=== PATIENT | female | born 1975 | race Caucasian/White ===

== ENCOUNTER → 2018-09-27 | Outpatient (CLI) | payer OTHER ==
--- NOTE | 2018-09-27 10:23 | MM ---
Reason for exam: clinical finding. History: Family history of breast cancer in maternal grandmother. Physical Findings: Nurse Summary: 0.5cm nodule in the right breast at 11 o'clock (nurse sourav). MG 3D Diag Mammo W/Cad NITZA Bilateral CC and MLO view(s) were taken. The breast tissue is heterogeneously dense. This may lower the sensitivity of mammography. No suspicious abnormality. These results were verbally communicated with the patient and result sheet given to the patient on 09/27/18. ASSESSMENT: Incomplete: need additional imaging evaluation, BI-RAD 0 RECOMMENDATION: Ultrasound of the right breast. (palpable)
--- NOTE | 2018-09-27 10:24 | USB ---
Reason for exam: additional evaluation requested from abnormal screening. History: Family history of breast cancer in maternal grandmother. US Breast Limited RT Right limited breast ultrasound including focal area of concern, retroareolar and axilla demonstrates no cystic or solid lesion seen. No suspicious finding at palpable. These results were verbally communicated with the patient and result sheet given to the patient on 09/27/18. ASSESSMENT: Negative, BI-RAD 1 RECOMMENDATION: Routine screening mammogram of both breasts in 1 year. Manage patient on a clinical basis.
== END | disposition home or self-care (01) ==
LOC: RADMAMWWP 07:55
PROVIDERS: ATTEND Family Medicine
DX: R92.8 Other abnormal and inconclusive findings on diagnostic imaging of breast (principal)
CPT/HCPCS: 77062; 77066

== ENCOUNTER → 2019-11-24 | Outpatient (CLI) | payer OTHER ==
--- NOTE | 2019-11-28 08:01 | MM ---
Reason for exam: screening (asymptomatic). Last mammogram was performed 1 year and 2 months ago. History: Family history of breast cancer in maternal grandmother. Physical Findings: A clinical breast exam by your physician is recommended on an annual basis and results should be correlated with mammographic findings. MG Screening Mammo w CAD Bilateral CC and MLO view(s) were taken. Prior study comparison: September 27, 2018, bilateral MG 3d diag mammo w/cad NITZA. There are scattered fibroglandular densities. Focal asymmetry No significant changes when compared with prior studies. ASSESSMENT: Benign, BI-RAD 2 RECOMMENDATION: Routine screening mammogram of both breasts in 1 year.
== END | disposition home or self-care (01) ==
LOC: RADMAMWWP 08:09
PROVIDERS: ATTEND Family Medicine
DX: Z12.31 Encounter for screening mammogram for malignant neoplasm of breast (principal)
CPT/HCPCS: 77067

== ENCOUNTER → 2020-04-30 | Outpatient (CLI) | payer OTHER ==
[2020-04-30 16:01] LABS: Thyroid Peroxidase Antibodies 41.1 U/mL (0.0-60.0)
[2020-04-30 16:10] LABS: Chol/HDL Ratio 3.37; LDL Cholesterol,Calculated 99.4 mg/dL (0.0-131.0); VLDL Calculation 21.6 mg/dL (5.00-40.00)
== END | disposition home or self-care (01) ==
LOC: LABWHC1 09:32
PROVIDERS: ATTEND Nurse Practitioner Psychiatric/Mental Health
DX: F41.1 Generalized anxiety disorder (principal)
CPT/HCPCS: 36415; 80061; 82947; 84439; 84443; 84481; 86376; 86800

== ENCOUNTER 2020-06-15 09:20 | Inpatient (IN) | payer OTHER ==
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
[2020-06-15 10:36] LABS: Amphetamine Screen,Urine Not Detected (NotDetected); Barbiturate Screen,Urine Not Detected (NotDetected); Benzodiazepines Screen,Urine Not Detected (NotDetected); Cocaine Screen,Urine Not Detected (NotDetected); Methadone Screen, Urine Not Detected (NotDetected); Opiate Screen,Urine Not Detected (NotDetected); Oxycodone Screen, Urine Not Detected (NotDetected); Phencyclidine Screen,Urine Not Detected (NotDetected); Tricyclic Antidepressant,Urine Detected (NotDetected); Urn Cannabinoid Scrn Detected (NotDetected)
[2020-06-15] MEDS ORDERED: LORazepam 1 MG TAB PO STA (12:19)
[2020-06-15] MEDS ORDERED: MAGNESIUM HYDROXIDE 2,400 MG/10 ML CUP PO PRN (15:35)
[2020-06-15] MEDS ORDERED: ACETAMINOPHEN TAB 325 MG TAB PO PRN (15:35)
[2020-06-15] MEDS ORDERED: MAG HYDROX/AL HYDROX/SIMETH 30 ML CUP PO PRN (15:35)
[2020-06-15] MEDS ORDERED: PROPRANOLOL 10 MG TAB PO PRN (15:39)
[2020-06-15] MEDS ORDERED: LORazepam 2 MG/ML INJ IM PRN (15:40)
[2020-06-15] MEDS ORDERED: HALOPERIDOL LACTATE 5 MG/ML 1 ML VIAL IM PRN (15:40)
[2020-06-15] MEDS ORDERED: haloperidoL 5 MG TAB PO PRN (15:41)
[2020-06-15] MEDS: GABAPENTIN 400 MG CAP PO SCH ×2 (17:03→20:26)
[2020-06-15] MEDS: QUEtiapine 200 MG TAB PO SCH (20:26)
[2020-06-15] MEDS ORDERED: NICOTINE 21MG/24HR PATCH TRANSDERM ONE (20:30)
--- NOTE | 2020-06-16 06:23 | P.MDCNMH ---
History of Present Illness H&P Date: 06/15/20 Chief Complaint: medical evaluation 44 year old female with hypertension , depression patient comes in for evaluation of depression and suicidal ideation patient reports no physical complaints, denies any fever, chills, SOB, chest pain , abd pain , nausea or vomiting patient has hypertension , and takes propranolol. she reported that she takes 4 pills , 3 times aday . and that has helped control her blood pressure , denies any headache, chest pain , SOB. or any focal neuro deficits Review of Systems Pertinent positives as noted in HPI. All other systems were reviewed and are negative Past Medical History Past Medical History: Hypertension History of Any Multi-Drug Resistant Organisms: None Reported Past Surgical History: Cholecystectomy, Tonsillectomy Past Anesthesia/Blood Transfusion Reactions: No Reported Reaction Past Psychological History: Anxiety, Bipolar, Depression Smoking Status: Current every day smoker, Current some day smoker Past Alcohol Use History: None Reported Past Drug Use History: Marijuana Medications and Allergies Home Medications Medication Instructions Recorded Confirmed Type Gabapentin [Neurontin] 400 mg PO TID 06/15/20 06/15/20 History Propranolol [Inderal] 20 mg PO TID PRN 06/15/20 06/15/20 History QUEtiapine [SEROquel] 200 mg PO BID 06/15/20 06/15/20 History amLODIPine [Norvasc] 5 mg PO DAILY 06/15/20 06/15/20 History lisinopriL 40 mg PO DAILY 06/15/20 06/15/20 History Allergies Allergy/AdvReac Type Severity Reaction Status Date / Time No Known Allergies Allergy Verified 06/15/20 16:58 Physical Exam Vitals: Vital Signs Temp Pulse Pulse Resp BP BP Pulse Ox 06/15/20 17:29 98.7 F 06/15/20 16:38 97.5 F L 89 20 140/95 06/15/20 13:00 18 06/15/20 09:34 98 F 120 H 18 146/70 96 Intake and Output 06/15/20 06/15/20 06/16/20 14:59 22:59 06:59 Other: Weight 108.862 kg 114.475 kg Constitutional: No acute distress, conversant, pleasant Eyes: Anicteric sclerae, moist conjunctiva, Pupils equal round reactive to light ENMT: NC/AT Oropharynx clear, no erythema, or exudates Neck: Supple, FROM, no masses, or JVD No carotid bruits No thyromegaly Lungs: Clear to auscultation Clear to percussion Normal respiratory effort, no accessory muscle use Cardiovascular: Heart regular in rate and rhythm, No murmurs, gallops, or rubs No peripheral edema Abdominal: Soft Nontender, no guarding, rebound or rigidity Abdomen moving with respiration Normoactive bowel sounds No hepatomegaly, No splenomegaly No palpable mass No abdominal wall hernia noted Skin: Normal temperature, tone, texture, turgor No induration No subcutaneous nodules No rash, lesions No ulcers Extremities: No digital cyanosis No clubbing Pedal pulses intact and symmetrical Radial pulses intact and symmetrical No calf tenderness Psychiatric: Alert and oriented to person, place and time Appropriate affect fair judgement Neuro Muscles Strength 5/5 in all 4 extremities Sensation to light touch grossly present throughout Cranial nerves II-XII grossly intact No focal sensory deficits Lymphatics: no palpable cervical or supraclavicular , or inguinal lymph nodes Cranial Nerve Examination - Cranial Nerves Cranial Nerve II- Optic: Intact Cranial Nerve III- Oculomotor: Intact Cranial Nerve IV- Trochlear: Intact Cranial Nerve V- Trigeminal: Intact Cranial Nerve - Abducens: Intact Cranial Nerve VII- Facial: Intact Cranial Nerve VIII- Auditory: Intact Cranial Nerve IX- Glossopharyngeal: Intact Cranial Nerve X- Vagus: Intact Cranial Nerve XI- Accessory: Intact Cranial Nerve XII- Hypoglossal: Intact Results Labs: Abnormal Lab Results - Last 24 Hours (Table) 06/15/20 Range/Units 10:00 U Tricyclic Antidepress Detected H (NotDetected) U Marijuana (THC) Screen Detected H (NotDetected) Assessment and Plan Assessment: depression and suicidal ideation , management per psych hypertension , controlled resume home meds patient claimed that she takes 4 pill s of her propranolol , 3 times a day Follow-up labs Thank you for allowing us to participate in the care of this patient. We will follow peripherally. Do not hesitate to contact us with questions. Someone can be reached from the [facility] hospitalist group at all hours of the day at [phone].
[2020-06-16 07:13] LABS: Basophils % (A) 0 %; Eosinophils # (A) 0.1 k/uL (0-0.7); Eosinophils % (A) 1 %; HCT 44.7 % (34.0-46.0); HGB 14.9 gm/dL (11.4-16.0); Lymphocytes # (A) 2.3 k/uL (1.0-4.8); Lymphocytes % (A) 26 %; MCH 31.9 pg (25.0-35.0); MCHC 33.3 g/dL (31.0-37.0); MCV 95.7 fL (80.0-100.0); Monocytes # (A) 0.7 k/uL (0-1.0); Monocytes % (A) 8 %; Neutrophils # (A) 5.5 k/uL (1.3-7.7); Neutrophils % (A) 63 %; Platelet Count 234 k/uL (150-450); RBC 4.67 m/uL (3.80-5.40); RDW 12.1 % (11.5-15.5); WBC 8.7 k/uL (3.8-10.6)
[2020-06-16 07:29] LABS: ALT 12 U/L (4-34); AST 21 U/L (14-36); African American GFR (CKD) >90 (>60 ml/min/1.73 sqM); Albumin 3.9 g/dL (3.5-5.0); Alkaline Phosphatase 66 U/L (38-126); Anion Gap 6 mmol/L; Blood Urea Nitrogen 12 mg/dL (7-17); Calcium 9.2 mg/dL (8.4-10.2); Carbon Dioxide 28 mmol/L (22-30); Chloride 104 mmol/L (98-107); Cholesterol 177 mg/dL (<200); Glucose 106 mg/dL (74-99); HDL Cholesterol 44 mg/dL (40-60); LDL Cholesterol,Calculated 117 mg/dL (0-99); Non-African American GFR(CKD) >90 (>60 ml/min/1.73 sqM); Potassium 4.2 mmol/L (3.5-5.1); Sodium 138 mmol/L (137-145); Total Bilirubin 0.6 mg/dL (0.2-1.3); Total Protein 6.7 g/dL (6.3-8.2); Triglycerides 81 mg/dL (<150)
[2020-06-16] MEDS: lisinopriL 20 MG TAB PO SCH (08:44)
[2020-06-16] MEDS: NICOTINE 21MG/24HR PATCH TRANSDERM SCH (08:44)
[2020-06-16] MEDS: amLODIPine 5 MG TAB PO SCH (08:45)
[2020-06-16] MEDS: GABAPENTIN 400 MG CAP PO SCH ×3 (08:45→21:17)
[2020-06-16] MEDS ORDERED: PROPRANOLOL 40 MG TAB PO SCH (09:00)
[2020-06-16] MEDS ORDERED: FLUoxetine HCL 20 MG CAP PO STA (10:22)
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
[2020-06-16] MEDS ORDERED: ASPIRIN 325 MG TAB PO PRN (12:46)
[2020-06-16 14:07] LABS: Hemoglobin A1C 5.3 % (4.0-6.0)
[2020-06-16] MEDS: QUEtiapine 200 MG TAB PO SCH (21:17)
[2020-06-16] MEDS: PROPRANOLOL 40 MG TAB PO SCH (21:29)
[2020-06-17 06:45] VITALS: TEMP 97.8
[2020-06-17] MEDS: NICOTINE 21MG/24HR PATCH TRANSDERM SCH (07:58)
[2020-06-17] MEDS: amLODIPine 5 MG TAB PO SCH (08:00)
[2020-06-17] MEDS: lisinopriL 20 MG TAB PO SCH (08:00)
[2020-06-17] MEDS: PROPRANOLOL 40 MG TAB PO SCH ×2 (08:00→21:11)
[2020-06-17] MEDS: GABAPENTIN 400 MG CAP PO SCH ×3 (08:00→21:11)
--- NOTE | 2020-06-17 14:26 | P.PN ---
Progress Note - Text Progress Note Date: 06/17/20 Clinical Problems: Major depressive disorder severe with anxious distress, rule out bipolar illness current episode depressed with anxious distress, alcohol use disorder severe in sustained remission Interim history: I reviewed the medical record and interviewed the patient. She reported a slight improvement in her mood and decreasing anxiety. She had no adverse reactions to the initial dose of Prozac. She attributes the improvement of remote to the supportive milieu but is hopeful for further improvements with the Prozac as she is experiencing the past. She talked about speaking with her frequently and they are addressing issues in her marriage. She was to be referred to another psychiatrist after discharge. She slept 7 hours last night. She is attending therapeutic groups and activities. Medical consult appreciated. Mental status exam: She presented as a fatigued-appearing 44-year-old female who was pleasant on approach. She appeared less distraught than on admission and did not cry during interview. She made eye contact and attended to interview. She had a sad facial expression. She had psychomotor retardation but no abnormal involuntary movements. Her speech was spontaneous with normal rate, rhythm and volume. Affect was depressed and minimally reactive. She denied suicidal ideation, wishes or homicidal ideation. She feels less hopeless and helpless to admission. She denied feeling worthless. She ruminated about her depression, anxiety and the effect of her mental illness in her family. She did not express ideas reference, paranoid ideation or delusions. Her thinking was abstract and her associations were coherent, log ical and goal directed. She denied hallucinations did not appear to be responding to internal stimuli. Assessment: She is moderately to severely mentally ill and minimally improve from admission. She is having no adverse effects to the initial dose of the antidepressant. Plan: Continue inpatient treatment. Safety precautions. Continue Prozac 20 mg daily and titrated clinical response and tolerance. Continue Seroquel 200 mg at bedtime. Taper then discontinue Inderal. Ativan 1 mg by mouth when necessary for anxiety. Encourage continued participation in therapeutic groups and activities. Evaluate clinical status response to treatment daily basis.
[2020-06-17] MEDS: QUEtiapine 200 MG TAB PO SCH (21:11)
[2020-06-18] MEDS: NICOTINE 21MG/24HR PATCH TRANSDERM SCH (08:49)
[2020-06-18] MEDS: PROPRANOLOL 10 MG TAB PO SCH ×2 (08:49→21:21)
[2020-06-18] MEDS: GABAPENTIN 400 MG CAP PO SCH ×3 (08:49→21:21)
[2020-06-18] MEDS: lisinopriL 20 MG TAB PO SCH (08:49)
[2020-06-18] MEDS: amLODIPine 5 MG TAB PO SCH (08:49)
[2020-06-18 08:58] VITALS: RESP 16
[2020-06-18] MEDS ORDERED: FLUoxetine HCL 20 MG CAP PO STA (09:33)
--- NOTE | 2020-06-18 09:54 | P.PN ---
Progress Note - Text Progress Note Date: 06/18/20 Interval History: Patient was seen wandering the hallways and was directable and agreeable to speak with commercial real estate underwriter in the office. The patient reports that overall she is feeling better. She states that the events leading to this hospitalization was nicotine elation of worsening depression ever since the holidays. She reports that with covid and other stressors she has been increasingly depressed. She states that she has been trying to receive antidepressant medication through her outpatient psychiatrist, which has been refused due to the diagnosis of bipolar disorder. Currently, the patient is not reporting any suicidal or homicidal ideation, intention, and/or plan. She is not reporting any auditory or visual hallucinations. She denies any paranoia or other delusions. She reports no racing thoughts, mood swings, irritability, or periods of excessive energy. She denies any increased goal-directed activity. She's been to drink the medications and not reporting any significant side effects at this time. Mental Status Exam: General Appearance: Patient appears to be stated age is alert, directable, and cooperative. Obese body habitus. Wearing glasses and has multiple tattoos. Behavior: Patient is calmly seated without any agitated behavior. Normal ps ychomotor activity. Speech: Patient's speech is fluent and nonpressured. Spontaneous, with normal rate, tone, volume. Mood/Affect: Mood is improving mildly, affect is congruent and euthymic. Suicidality/Homicidality: Patient denies having any suicidal or homicidal ideation intent or plan. Perceptions: Patient denies any visual hallucinations and denies any auditory hallucinations Though content/process: There is no evidence of any delusional thought content and thought process is linear and goal-directed. Future oriented. Memory and concentration: AOX3, grossly intact for the purposes of this session Judgment and insight: Improving mildly Assessment Major depressive disorder, with anxious distress Rule out bipolar disorder, depressed episode Alcohol use disorder, in sustained remission Plan: -Patient continues to meet criteria for inpatient psychiatric admission for symptom stabilization and safety. Patient has signed adult voluntary form and medication consent and was placed in patient's chart. -Medications: We will increase Prozac to 30 mg by mouth daily for management of depression/anxiety Continue Seroquel 20 mg at bedtime for mood stabilization/augmentation Continue taper of Inderal. -When necessary Ativan and Geodon for agitation/aggression. -NRT - nicotine patch -SW on board for discharge planning. Encouraged the patient to participate in milieu.
[2020-06-18] MEDS: QUEtiapine 200 MG TAB PO SCH (21:21)
[2020-06-19] MEDS: NICOTINE 21MG/24HR PATCH TRANSDERM SCH (07:54)
[2020-06-19] MEDS: lisinopriL 20 MG TAB PO SCH (07:55)
[2020-06-19] MEDS: GABAPENTIN 400 MG CAP PO SCH (07:55)
[2020-06-19] MEDS: amLODIPine 5 MG TAB PO SCH (07:55)
[2020-06-19 08:05] VITALS: BP 128/82; PULSE 82
[2020-06-19] MEDS ORDERED: FLUoxetine HCL 10 MG CAP PO SCH (09:00)
[2020-06-19] MEDS ORDERED: PROPRANOLOL 20 MG TAB PO SCH (09:00)
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
[2020-06-20] MEDS ORDERED: PROPRANOLOL 10 MG TAB PO SCH (09:00)
== END 2020-06-19 14:17 | disposition home or self-care (01) | DRG 885 ==
LOC: EC 09:20 → 3MHU 15:32
PROVIDERS: ADMIT Psychiatry & Neurology Psychiatry; ATTEND Psychiatry & Neurology Psychiatry
DX: F32.2 Major depressive disorder, single episode, severe without psychotic features (principal); R45.851 Suicidal ideations; F41.9 Anxiety disorder, unspecified; G47.00 Insomnia, unspecified; G89.29 Other chronic pain; Z20.822 Contact with and (suspected) exposure to COVID-19; I10 Essential (primary) hypertension; Z79.899 Other long term (current) drug therapy; Z91.410 Personal history of adult physical and sexual abuse; Z91.5 Personal history of self-harm; Z81.1 Family history of alcohol abuse and dependence; Z90.89 Acquired absence of other organs; Z90.49 Acquired absence of other specified parts of digestive tract
CPT/HCPCS: 80053; 80061; 80306; 82075; 83036; 84443; 85025; 87635; 99285

== ENCOUNTER → 2021-02-22 | Outpatient (CLI) | payer OTHER ==
--- NOTE | 2021-02-26 09:47 | MM ---
Reason for exam: screening (asymptomatic). Last mammogram was performed 1 year and 3 months ago. History: Family history of breast cancer in maternal grandmother. Physical Findings: A clinical breast exam by your physician is recommended on an annual basis and results should be correlated with mammographic findings. MG Screening Mammo w CAD Bilateral CC and MLO view(s) were taken. Prior study comparison: November 24, 2019, bilateral MG screening mammo w CAD. September 27, 2018, bilateral MG 3d diag mammo w/cad [facility]. Finding: There is an enlarging 7 x 14 mm equal density (isodense), indistinct oval mass in the upper outer quadrant, middle position of the right breast, previously measured 6 x 11mm. New finding since November 24, 2019 and September 27, 2018. ASSESSMENT: Incomplete: need additional imaging evaluation, BI-RAD 0 RECOMMENDATION: Special view mammogram of the right breast. If lesion persists on supplemental views, image directed ultrasound is recommended. [facility] will attempt to contact patient to return for supplemental views and ultrasound if indicated.
== END | disposition home or self-care (01) ==
LOC: RADMAMWWP 08:08
PROVIDERS: ATTEND Family Medicine
DX: Z12.31 Encounter for screening mammogram for malignant neoplasm of breast (principal)
CPT/HCPCS: 77067

== ENCOUNTER → 2021-03-07 | Outpatient (CLI) | payer OTHER ==
--- NOTE | 2021-03-07 12:23 | MM ---
Reason for exam: additional evaluation requested from abnormal screening. Last mammogram was performed less than 1 month ago. History: Family history of breast cancer in maternal grandmother. Physical Findings: Nurse did not find any significant physical abnormalities on exam. MG Work Up Mamm w CAD RT LM and spot compression MLO view(s) were taken of the right breast. Prior study comparison: February 22, 2021, bilateral MG screening mammo w CAD. November 24, 2019, bilateral MG screening mammo w CAD. The breast tissue is heterogeneously dense. This may lower the sensitivity of mammography. Nodule upper outer quadrant persists 7cm from nipple and measures 9mm. These results were verbally communicated with the patient and result sheet given to the patient on 03/07/21. ASSESSMENT: Incomplete: need additional imaging evaluation, BI-RAD 0 RECOMMENDATION: Ultrasound of the right breast.
--- NOTE | 2021-03-07 12:25 | USB ---
Reason for exam: additional evaluation requested from abnormal screening. History: Family history of breast cancer in maternal grandmother. US Breast Workup Limited RT Right limited breast ultrasound including focal area of concern, retroareolar and axilla demonstrates no cystic or solid lesion seen. These results were verbally communicated with the patient and result sheet given to the patient on 03/07/21. ASSESSMENT: Suspicious, BI-RAD 4 RECOMMENDATION: Stereotactic core biopsy of the right breast. Called Dr. Terry's office with mammographic findings and has scheduled an appointment for the patient for 04/25/21 at 8:[address] Cary. Biopsy scheduled for 04/08/21 at 10:30. PRELIMINARY REPORT CALLED AND FAXED TO DR. CARY ON 03/07/21.
== END | disposition home or self-care (01) ==
LOC: RADMAMWWP 10:15
PROVIDERS: ATTEND Family Medicine
DX: N63.11 Unspecified lump in the right breast, upper outer quadrant (principal); Z80.3 Family history of malignant neoplasm of breast
CPT/HCPCS: 77065

== ENCOUNTER → 2021-04-08 | Day surgery (SDC) | payer OTHER ==
[2021-04-08 09:54] VITALS: RESP 16
--- NOTE | 2021-04-08 11:26 | MM ---
EXAMINATION TYPE: MG stereo VAD BX RT DATE OF EXAM: 04/08/2021 COMPARISON: 02/22/2021 CLINICAL HISTORY: 14 mm nodule upper outer quadrant right breast TECHNIQUE: Stereotactic guided core biopsy of right breast. FINDINGS: The procedure of stereotactic guided core biopsy was explained to the patient. Benefits, alternatives, and risks were discussed. An informed consent was then obtained. The shortness pathway for biopsy was chosen. Shortness pathway was superior approach. I performed the entire procedure. A vacuum assisted biopsy gun was used to obtain multiple core samples. The patient tolerated the procedure well without any immediate complication. The patient was kept in the radiology department for short stay after the procedure and then discharged home in stable condition. Post biopsy mammogram shows the clip to appear in satisfactory position relative to the targeted area of concern on the preprocedure images. IMPRESSION: SUCCESSFUL, UNCOMPLICATED STEREOTACTIC GUIDED CORE BIOPSY OF AREA OF CONCERN IN THE right BREAST, FULL PATHOLOGY RESULTS TO FOLLOW. Pathology Results: Benign RIGHT BREAST, STEREOTACTIC CORE BIOPSY: Fibrocystic changes including cysts with apocrine metaplasia and rare microcalcifications. Recommendation Follow up mammogram of the right breast in 6 months. ROEL
[2021-04-08 11:27] VITALS: BP 126/80; PULSE 87; TEMP 98.1
== END ==
LOC: RADMAMWWP 09:21
PROVIDERS: ATTEND Surgery
DX: N60.11 Diffuse cystic mastopathy of right breast (principal); N60.81 Other benign mammary dysplasias of right breast
CPT/HCPCS: 88305; 19081; A4648; J2001

== ENCOUNTER → 2023-03-09 | Outpatient (CLI) | payer OTHER ==
--- NOTE | 2023-03-10 15:33 | MM ---
Reason for Exam: Screening (asymptomatic). Last mammogram was performed 2 year(s) and 1 month(s) ago. Patient History: Menarche at age 12. First Full-Term at age 21. Patient has history of breast feeding. 04/08/2021, Benign Core Biopsy on the right side. Maternal grandmother had breast cancer. Last menstrual period: 02/26/2023 Risk Values: Lissy 5 year model risk: 1.1%. NCI Lifetime model risk: 10.0%. Prior Study Comparison: 11/24/2019 Bilateral Screening Mammogram, [facility]. 02/22/2021 Bilateral Screening Mammogram, [facility]. 03/07/2021 Right Diagnostic Mammogram, [facility]. Tissue Density: There are scattered fibroglandular densities. Findings: Analyzed By CAD. Pattern appears symmetrical and stable. Core marker is within the right breast. Couple punctate calcifications within the left breast. No significant interval changes are evident. No suspicious groups of microcalcifications, spiculated or lobular masses, architectural distortion or other secondary signs of malignancy are mammographically apparent. Overall Assessment: Benign, BI-RAD 2 Management: Screening Mammogram of both breasts in 1 year. A negative mammogram report should not preclude additional follow up of suspicious palpable abnormalities. Patient should continue monthly self breast exam. A clinical breast exam by your physician is recommended on an annual basis and results should be correlated with mammographic findings. Electronically signed and approved by: Dl Brian D.O. Radiologis
== END | disposition home or self-care (01) ==
LOC: RADMAMWWP 07:01
PROVIDERS: ATTEND Family Medicine
DX: Z12.31 Encounter for screening mammogram for malignant neoplasm of breast (principal); Z80.3 Family history of malignant neoplasm of breast
CPT/HCPCS: 77067